=== PATIENT | male | born 1955 | race Caucasian/White ===

== ENCOUNTER 2018-01-11 10:32 | Day surgery (SDC) | payer BC ==
[~2018-01-11 10:32] MED LIST: ACETAMINOPHEN 1,000 MG/100 ML BTL IV ONE; CEFAZOLIN 2 Gram 2 GM/50 ML BAG IVPB ONE
[2018-01-11] MEDS ORDERED: MIDAZOLAM HCL 2MG/2ML VIAL IV ONE (10:33)
[2018-01-11] MEDS ORDERED: LIDOCAINE 2% MDV (20MG/ML) 20ML VIAL IV ONE (10:33)
[2018-01-11] MEDS ORDERED: KETOROLAC 30 MG/ML VIAL IVP ONE (10:33)
[2018-01-11] MEDS ORDERED: SEVOFLURANE 250 ML INH ONE (10:33)
[2018-01-11] MEDS ORDERED: BUPIVACAINE 0.25% W/EPI MPF 30ML VIAL IVP ONE (10:33)
[2018-01-11] MEDS ORDERED: FENTANYL PF 100MCG/2ML VIAL IV ONE (10:33)
[2018-01-11] MEDS ORDERED: BUPIVACAINE LIPOSOME 266MG/20ML VIAL IV ONE (10:33)
[2018-01-11] MEDS ORDERED: PROPOFOL 10 MG/ML VIAL IV ONE (10:33)
[2018-01-11] MEDS ORDERED: ONDANSETRON HCL IV 4 MG/2 ML VIAL IVP ONE (10:33)
--- NOTE | 2018-01-11 22:10 | Operative Note ---
DATE OF SURGERY: 01/11/2018. PREOPERATIVE DIAGNOSIS: 1. Left knee arthrosis. 2. Medial meniscal tear. POSTOPERATIVE DIAGNOSIS: 1. Left knee arthrosis. 2. Medial meniscal tear. PROCEDURE: 1. Diagnostic arthroscopy. 2. Arthroscopic partial medial meniscectomy. 3. Arthroscopic debridement and chondroplasty of the medial femoral condyle, trochlea, patella. SURGEON: Frederic Jha M.D. ANESTHESIA: General endotracheal. ANESTHESIA PROVIDER: Christophe Gonzalez CRNA. COMPLICATIONS: None. BLOOD LOSS: Minimal. INDICATION FOR OPERATION: This is a 60-year-old male who has had persistent pain and dysfunction in his knee for several years. He failed nonoperative treatment and was scheduled for arthroscopic surgery. I explained all the risks and benefits to him in detail for diagnosis and procedures including but not limited to infection, nerve injury, vessel injury, persistent pain, stiffness, numbness and tingling in his knee. All of his questions were answered. Rehab and course were outlined and he agreed to proceed. PROCEDURE: The patient brought to O.R. and placed in the supine position for arthroscopic surgery. General endotracheal anesthesia induced. The left lower extremity was and draped in sterile fashion. The left knee was prepped again with ChloraPrep after drape and intraoperative time-out was performed. Preoperatively, the exam revealed full knee range of motion. No knee instability. Next, knee injected with 0.5% Marcaine with Epinephrine. Standard superior lateral inflow port was established. Inferior medial and lateral portal was established and diagnostic arthroscopy performed. Suprapatellar pouch had some synovitis. Medial gutter had small plica. This was resected. Medial compartment revealed significant arthrosis, grade 3 and some areas of grade 4 throughout the femoral condyle and tibial plateau, and a complex tear of the posterior middle horns of the medial meniscus. Using a combination of basket biter and jesika, we debrided and smoothed the meniscus, basically removing the entire middle and posterior horns, what was left of it, to a smooth stable surface. Also debrided and performed chondroplasty of the medial femoral condyle and removed any loose cartilage laterally. Intercondylar notch was normal other than some synovitis. The ACL was intact. The PCL was intact. The lateral compartment was basically normal with some mild degenerative fraying over the lateral meniscus. The cartilage here was normal. The lateral gutter was normal. 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 This completed our procedures. The scope and equipment was removed. The knee was bolused with 0.5% Marcaine with Epinephrine and Exparel and 80 mg DepoMedrol. Sterile dressing applied. KARISHMA wrap. The patient tolerated the procedures well. No intraoperative complications. All sponge, needle, and blade counts correct. Recovery Room stable, neurovascularly intact. He will be discharged as an outpatient and have [facility] nurse and follow-up in two weeks. cc: Dr. Treviño JOB NUMBER: [id number] MTDD
== END 2018-01-11 14:10 | disposition home or self-care (01) ==
LOC: SUR 10:32
PROVIDERS: ATTEND Orthopaedic Surgery
DX: S83.242A Other tear of medial meniscus, current injury, left knee, initial encounter (principal); M17.12 Unilateral primary osteoarthritis, left knee; I10 Essential (primary) hypertension; E78.00 Pure hypercholesterolemia, unspecified; E11.9 Type 2 diabetes mellitus without complications; Z79.84 Long term (current) use of oral hypoglycemic drugs
CPT/HCPCS: 29881; 01400; J0690; C9290; J1885; J2405